=== PATIENT | male | born 1965 | race African-American/Black ===

== ENCOUNTER 2017-02-12 20:09 | Inpatient (IN) | payer OTHER ==
[~2017-02-12] VITALS: Ht 177.8 cm; Wt 90.7 kg
--- NOTE | ~2017-02-12 | EKG ---
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[place] : 1965 Requested By: Norma Lechuga Order Number: [id number] MD: Polo Zafar Measurements Intervals [place] Rate: 93 P: 60 ME: 161 QRS: 8 QRSD: 73 T: 35 QT: 352 QTc: 438 Interpretive Statements Sinus rhythm ST elev, probable normal early repol pattern Compared to ECG 08/29/2013 13:41:51 No significant change was found Electronically Signed On 02-14-2017 8:28:45 CDT by Polo Zafar [email or web address] <ELECTRONICALLY SIGNED> By: Polo Zafar MD, [facility] 02/14/17 0828 25 25 Polo Zafar MD, [facility] /EPI
[~2017-02-12 20:09] MED LIST: METFORMIN HCL500 MG PO; NORCO 5-325 TA1 EACH PO
[2017-02-12 20:19] VITALS: BP 142/114
[2017-02-12 20:50] LABS: ABSOLUTE NEUTROPHILS 10.6 thou/uL (1.4-8.2); BASOPHILS 0.7 % (0.0-2.0); EOSINOPHILS 0.8 % (0.0-3.0); HEMATOCRIT 50.1 % (42.0-52.0); HEMOGLOBIN 16.9 gm/dL (14.0-18.0); LYMPHOCYTES 19.1 % (24.0-44.0); MCH 26.1 pg (26.0-34.0); MCHC 33.7 g/dL (28.0-37.0); MCV 77.5 fL (80.0-100.0); MONOCYTES 9.8 % (1.0-8.0); PLATELET COUNT 388 thou/uL (150-400); POLYS 69.6 % (36.0-66.0); RBC 6.47 mil/uL (4.50-6.00); RDW 14.3 % (10.5-14.5); WBC 15.2 thou/uL (4.0-11.0)
[2017-02-12 20:56] LABS: MANUAL DIFF NO
[2017-02-12 21:11] LABS: ALBUMIN 4.9 g/dL (3.4-5.0); CREATININE 3.6 mg/dL (0.7-1.3); POTASSIUM 5.1 mmol/L (3.5-5.1); TOTAL BILIRUBIN 0.4 mg/dL (<0.1-1.0); TOTAL PROTEIN 9.2 g/dL (6.4-8.2)
[2017-02-12 21:21] LABS: TROPONIN-I < 0.04 ng/mL (<0.04-0.07)
[2017-02-12 21:44] LABS: URINE COLOR YELLOW; URINE PROTEIN (DIPSTICK) 1+ (Negative); URINE SPECIFIC GRAVITY 1.025 (1.003-1.035)
[2017-02-12 21:45] LABS: URINE BILIRUBIN NEGATIVE (Negative); URINE BLOOD 1+ (Negative); URINE GLUCOSE-RANDOM* 3+ (Negative); URINE KETONES NEGATIVE (Negative); URINE NITRITE NEGATIVE (Negative); URINE UROBILINOGEN 0.2 E.U./dl (0.2-1.0)
[2017-02-12 22:01] LABS: SQUAMOUS None Seen /LPF (0-3)
[2017-02-12 22:02] LABS: BACTERIA None Seen /HPF (None Seen); CRYSTALS None Seen /LPF (None Seen); HYALINE CASTS >10 Many /LPF (None Seen); TRANSITIONAL EPITHEL CELL 4-10 Moderate /LPF (None Seen); URINE RBC 0-2 Rare /HPF (0-2); URINE WBC None Seen /HPF (0-5)
[2017-02-12 22:28] VITALS: BP 148/86
[2017-02-12 23:10] VITALS: BP 136/68
[2017-02-13 00:25] VITALS: BP 121/79
[2017-02-13 04:06] VITALS: BP 114/71
[2017-02-13 06:25] LABS: HEMATOCRIT 42.5 % (42.0-52.0); MCH 26.2 pg (26.0-34.0); MCHC 34.3 g/dL (28.0-37.0); MCV 76.3 fL (80.0-100.0); RBC 5.57 mil/uL (4.50-6.00); RDW 14.6 % (10.5-14.5); WBC 9.3 thou/uL (4.0-11.0)
[2017-02-13 06:28] LABS: HEMOGLOBIN 14.6 gm/dL (14.0-18.0)
[2017-02-13 06:42] LABS: CALCIUM 8.7 mg/dL (8.5-10.1); POTASSIUM 4.3 mmol/L (3.5-5.1)
[2017-02-13 09:54] VITALS: BP 124/83
[2017-02-13 14:26] LABS: AMP/METHAMP POSITIVE (Negative); BARBITURATES Negative (Negative); BENZODIAZEPINES Negative (Negative); COCAINE Negative (Negative); METHADONE Negative (Negative); OPIATES Negative (Negative); PCP Negative (Negative); THC Negative (Negative)
[2017-02-13 16:18] VITALS: BP 127/79
[2017-02-13 20:30] VITALS: BP 123/82
[2017-02-14 00:07] LABS: GLYCOHEMOGLOBIN (HGB A1C) 9.4 % (4.8-5.6)
[2017-02-14 04:30] VITALS: BP 129/77
[2017-02-14 06:19] LABS: ABSOLUTE NEUTROPHILS 2.9 thou/uL (1.4-8.2); BASOPHILS 0.8 % (0.0-2.0); EOSINOPHILS 5.5 % (0.0-3.0); HEMATOCRIT 40.3 % (42.0-52.0); HEMOGLOBIN 13.9 gm/dL (14.0-18.0); LYMPHOCYTES 37.3 % (24.0-44.0); MCH 26.4 pg (26.0-34.0); MCHC 34.6 g/dL (28.0-37.0); MCV 76.4 fL (80.0-100.0); MONOCYTES 9.3 % (1.0-8.0); PLATELET COUNT 260 thou/uL (150-400); POLYS 47.1 % (36.0-66.0); RBC 5.27 mil/uL (4.50-6.00); RDW 14.3 % (10.5-14.5); WBC 6.2 thou/uL (4.0-11.0)
[2017-02-14 06:26] LABS: MANUAL DIFF NO
[2017-02-14 06:31] LABS: CALCIUM 8.2 mg/dL (8.5-10.1); POTASSIUM 4.6 mmol/L (3.5-5.1)
[2017-02-14 07:34] VITALS: BP 147/75
[2017-02-14 15:28] VITALS: BP 138/84
[2017-02-14 20:00] VITALS: BP 118/72
[2017-02-15 04:14] VITALS: BP 141/96
[2017-02-15 07:30] VITALS: BP 149/100
[2017-02-15 10:57] VITALS: BP 149/100
== END 2017-02-15 13:42 | disposition home or self-care (01) | DRG 683 ==
LOC: ER 20:09 → 4E 21:34 → EROBS 21:34 → 4E 23:11
PROVIDERS: Family Medicine; Nurse Practitioner Acute Care; Nurse Practitioner Family
DX: N17.9 Acute kidney failure, unspecified (principal); M62.82 Rhabdomyolysis; E87.1 Hypo-osmolality and hyponatremia; E86.0 Dehydration; E11.65 Type 2 diabetes mellitus with hyperglycemia; F15.10 Other stimulant abuse, uncomplicated; F17.210 Nicotine dependence, cigarettes, uncomplicated; M25.511 Pain in right shoulder; F10.920 Alcohol use, unspecified with intoxication, uncomplicated; F12.90 Cannabis use, unspecified, uncomplicated; Z93.0 Tracheostomy status; Z79.84 Long term (current) use of oral hypoglycemic drugs; Z83.3 Family history of diabetes mellitus
CPT/HCPCS: 10183

== ENCOUNTER 2017-08-13 22:51 | Emergency (ER) | payer OTHER ==
[~2017-08-13] VITALS: Ht 180.3 cm; Wt 90.7 kg
--- NOTE | ~2017-08-13 | EKG ---
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[facility] : 1965 Requested By: Florence Linares Order Number: [id number] MD: Polo Zafar Measurements Intervals [place] Rate: 110 P: 64 AL: 156 QRS: -6 QRSD: 76 T: 49 QT: 310 QTc: 420 Interpretive Statements Sinus tachycardia Probable left atrial enlargement RSR' in V1 or V2, probably normal variant Compared to ECG 02/12/2017 21:26:17 RSR' in V1 or V2 now present Electronically Signed On 08-14-2017 14:07:28 CDT by Polo Zafar [email or web address] <ELECTRONICALLY SIGNED> By: Polo Zafar MD, [facility] 08/14/17 1407 2305 2305 Polo Zafar MD, FAC /EPI
[2017-08-13 23:44] LABS: ABSOLUTE NEUTROPHILS 8.1 thou/uL (1.4-8.2); BASOPHILS 0.7 % (0.0-2.0); HEMATOCRIT 40.2 % (42.0-52.0); HEMOGLOBIN 13.9 gm/dL (14.0-18.0); LYMPHOCYTES 12.6 % (24.0-44.0); MCHC 34.5 g/dL (28.0-37.0); MCV 75.4 fL (80.0-100.0); MONOCYTES 6.4 % (1.0-8.0); PLATELET COUNT 249 thou/uL (150-400); POLYS 79.3 % (36.0-66.0); RBC 5.33 mil/uL (4.50-6.00); RDW 14.6 % (10.5-14.5); WBC 10.2 thou/uL (4.0-11.0)
[2017-08-13 23:48] LABS: CALCIUM 8.7 mg/dL (8.5-10.1); CREATININE 0.9 mg/dL (0.7-1.3); POTASSIUM 3.8 mmol/L (3.5-5.1)
[2017-08-14 00:23] LABS: ALBUMIN 3.4 g/dL (3.4-5.0); DIRECT BILIRUBIN 0.1 mg/dL (<0.1-0.3); TOTAL BILIRUBIN 0.4 mg/dL (<0.1-1.0); TOTAL PROTEIN 7.2 g/dL (6.4-8.2)
[2017-08-14] MEDS ORDERED: LEVAQUIN 500 M500 MG PO (00:37)
[2017-08-14] MEDS ORDERED: PROAIR HFA8.5 GM INH (00:37)
[2017-08-14 00:51] VITALS: BP 153/93
[2018-01-18] MEDS ORDERED: GABAPENTIN100 MG PO (23:22)
== END 2017-08-14 00:52 | disposition home or self-care (01) ==
LOC: ER 22:51
PROVIDERS: Emergency Medicine
DX: J18.9 Pneumonia, unspecified organism (principal); E11.9 Type 2 diabetes mellitus without complications; F17.210 Nicotine dependence, cigarettes, uncomplicated

== ENCOUNTER 2018-06-16 21:54 | Emergency (ER) | payer OTHER ==
[~2018-06-16] VITALS: Ht 180.3 cm; Wt 90.7 kg
[~2018-06-16 21:54] MED LIST changes: +GABAPENTIN100 MG PO; +LEVAQUIN 500 M500 MG PO; +PROAIR HFA8.5 GM INH
[2018-06-16 21:57] VITALS: BP 143/77
[2018-06-16] MEDS ORDERED: TESSALON PERLE100 MG PO (23:14)
== END 2018-06-16 23:21 | disposition home or self-care (01) ==
LOC: ER 21:54
DX: J20.9 Acute bronchitis, unspecified (principal); J06.9 Acute upper respiratory infection, unspecified; F17.210 Nicotine dependence, cigarettes, uncomplicated; E11.9 Type 2 diabetes mellitus without complications

== ENCOUNTER 2018-09-28 22:20 | Emergency (ER) | payer OTHER ==
[~2018-09-28] VITALS: Ht 180.3 cm; Wt 85.7 kg
[~2018-09-28 22:20] MED LIST changes: +TESSALON PERLE100 MG PO
[2018-09-28 22:58] LABS: ABSOLUTE NEUTROPHILS 3.8 thou/uL (1.4-8.2); EOSINOPHILS 3.9 % (0.0-3.0); HEMATOCRIT 40.5 % (42.0-52.0); HEMOGLOBIN 13.8 gm/dL (14.0-18.0); LYMPHOCYTES 34.4 % (24.0-44.0); MCH 25.9 pg (26.0-34.0); MCHC 33.9 g/dL (28.0-37.0); MCV 76.4 fL (80.0-100.0); MONOCYTES 6.5 % (1.0-8.0); PLATELET COUNT 314 thou/uL (150-400); POLYS 54.2 % (36.0-66.0); RBC 5.31 mil/uL (4.50-6.00); RDW 15.5 % (10.5-14.5)
[2018-09-28 23:03] LABS: ANION GAP 9 mmol/L (7-16); BUN 11 mg/dL (7-18); CALCIUM 8.6 mg/dL (8.5-10.1); CHLORIDE 103 mmol/L (98-107); CO2 26 mmol/L (21-32); CREATININE 1.1 mg/dL (0.7-1.3); GLUCOSE 174 mg/dL (74-106); POTASSIUM 3.4 mmol/L (3.5-5.1); SODIUM 138 mmol/L (136-145)
[2018-09-28 23:13] LABS: ALBUMIN 3.7 g/dL (3.4-5.0); LIPASE 95 U/L (73-393); SGOT 17 U/L (15-37); SGPT 21 U/L (30-65); TOTAL BILIRUBIN 0.2 mg/dL (<0.1-1.0); TOTAL PROTEIN 7.6 g/dL (6.4-8.2); TROPONIN-I <0.06 ng/mL (<0.06)
[2018-09-28 23:48] LABS: URINE BILIRUBIN NEGATIVE (Negative); URINE BLOOD NEGATIVE (Negative); URINE CLARITY CLEAR; URINE COLOR YELLOW; URINE GLUCOSE-RANDOM* 1+ (Negative); URINE KETONES TRACE (Negative); URINE LEUKOCYTES-REFLEX NEGATIVE (Negative); URINE NITRITE-REFLEX NEGATIVE (Negative); URINE PROTEIN (DIPSTICK) NEGATIVE (Negative); URINE SPECIFIC GRAVITY >= 1.030 (1.005-1.035)
[2018-09-29] MEDS ORDERED: PEPCID20 MG PO (00:04)
[2018-09-29 00:53] VITALS: BP 130/75
--- NOTE | 2018-09-29 12:12 | EKG ---
[facility] [employer] [place] [address] ELECTROCARDIOGRAM REPORT Name: YONATHAN SHAIKH Room #: DEP MIKE Hinson#: [id number] ������������������ Admission: 09/28/18 ������������������ Attend Phys: Discharge: 09/29/18 ������������������ Date of : 69 Report #: [id number] ����������������������������������������������������������������� [id number] THIS REPORT FOR: //name// 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 : 1965 Requested By: Matteo Madrigal Order Number: [id number] MD: Polo Zafar Measurements Intervals [place] Rate: 89 P: 70 NC: 176 QRS: -2 QRSD: 87 T: 56 QT: 361 QTc: 440 Interpretive Statements Sinus rhythm RSR' in V1 or V2, probably normal variant ST elev, probable normal early repol pattern Compared to ECG 08/13/2017 23:05:11 Sinus tachycardia no longer present Electronically Signed On 09-29-2018 12:12:29 CDT by Polo Zafar [email or web address] ��������������������������������������������� <ELECTRONICALLY SIGNED> ���������������������������������������� By: Polo Zafar MD, [facility] ��������������������������������������������� 09/29/18 1212 2305 2305 Polo Zafar MD, [facility] /EPI
== END 2018-09-29 00:54 | disposition home or self-care (01) ==
LOC: ER 22:20
PROVIDERS: Emergency Medicine
DX: S20.212A Contusion of left front wall of thorax, initial encounter (principal); R10.32 Left lower quadrant pain; R11.0 Nausea; E11.9 Type 2 diabetes mellitus without complications; I10 Essential (primary) hypertension; E78.5 Hyperlipidemia, unspecified; F17.210 Nicotine dependence, cigarettes, uncomplicated; W19.XXXA Unspecified fall, initial encounter; Y93.89 Activity, other specified; Y92.89 Other specified places as the place of occurrence of the external cause; Y99.8 Other external cause status

== ENCOUNTER 2019-06-30 00:06 | Emergency (ER) | payer OTHER ==
[~2019-06-30] VITALS: Ht 177.8 cm; Wt 77.1 kg
[~2019-06-30 00:06] MED LIST changes: +PEPCID20 MG PO
[2019-06-30 00:53] LABS: HEMOGLOBIN 13.4 gm/dL (14.0-18.0); MCH 25.8 pg (26.0-34.0); MCHC 33.4 g/dL (28.0-37.0); MCV 77.1 fL (80.0-100.0); PLATELET COUNT 258 thou/uL (150-400); RBC 5.19 mil/uL (4.50-6.00); RDW 15.2 % (10.5-14.5); WBC 6.2 thou/uL (4.0-11.0)
[2019-06-30 01:04] LABS: ANION GAP 11 mmol/L (7-16); BUN 10 mg/dL (7-18); CALCIUM 8.2 mg/dL (8.5-10.1); CHLORIDE 102 mmol/L (98-107); CO2 26 mmol/L (21-32); GLUCOSE 138 mg/dL (74-106); POTASSIUM 3.6 mmol/L (3.5-5.1); SODIUM 139 mmol/L (136-145)
[2019-06-30 01:13] LABS: TROPONIN-I <0.06 ng/mL (<0.06)
[2019-06-30 01:45] LABS: ABSOLUTE NEUTROPHILS 1.9 thou/uL (1.4-8.2)
[2019-06-30 01:46] LABS: ANISOCYTOSIS 1+; HYPOCHROMASIA 1+; MICROCYTES 1+; PLATELET ESTIMATE NORMAL; POIKILOCYTOSIS 1+
[2019-06-30 02:26] VITALS: BP 160/90
--- NOTE | 2019-07-04 12:33 | EKG ---
[facility] [place] [address] ELECTROCARDIOGRAM REPORT Name: YONATHAN SHAIKH Room #: [facility]P 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[facility] : 1965 Requested By: Josh Eddy Order Number: [id number] MD: Polo Zafar Measurements Intervals [place] Rate: 85 P: 75 CO: 177 QRS: 34 QRSD: 80 T: 70 QT: 344 QTc: 409 Interpretive Statements Sinus rhythm RSR' in V1 or V2, probably normal variant Baseline wander in lead(s) V6 Compared to ECG 09/28/2018 23:05:13 No significant changes Electronically Signed On 07-02-2019 7:21:27 [employer]ULP [employer]ILL TEAM LEADER by Polo Zafar [email or web address] <ELECTRONICALLY SIGNED> By: Polo Zafar MD, FACC 07/02/19 0721 0011 0011 Polo Zafar MD, [facility] /EPI
== END 2019-06-30 01:48 | disposition home or self-care (01) ==
LOC: ER 00:06
PROVIDERS: Emergency Medicine
DX: R07.89 Other chest pain (principal); E11.9 Type 2 diabetes mellitus without complications; F17.210 Nicotine dependence, cigarettes, uncomplicated; Z88.6 Allergy status to analgesic agent

== ENCOUNTER 2019-08-05 15:49 | Emergency (ER) | payer OTHER ==
[~2019-08-05] VITALS: Ht 177.8 cm; Wt 90.7 kg
[2019-08-05 16:22] LABS: BASOPHILS 0.8 % (0.0-2.0); EOSINOPHILS 5.2 % (0.0-3.0); HEMATOCRIT 41.8 % (42.0-52.0); HEMOGLOBIN 13.7 gm/dL (14.0-18.0); LYMPHOCYTES 45.2 % (24.0-44.0); MCH 25.8 pg (26.0-34.0); MCHC 32.7 g/dL (28.0-37.0); MCV 78.6 fL (80.0-100.0); MONOCYTES 7.4 % (1.0-8.0); PLATELET COUNT 278 thou/uL (150-400); POLYS 41.4 % (36.0-66.0); RBC 5.31 mil/uL (4.50-6.00); RDW 15.8 % (10.5-14.5); WBC 4.9 thou/uL (4.0-11.0)
[2019-08-05 16:27] LABS: CALCIUM 8.5 mg/dL (8.5-10.1); POTASSIUM 3.7 mmol/L (3.5-5.1)
[2019-08-05 16:30] LABS: URINE BILIRUBIN NEGATIVE (Negative); URINE BLOOD NEGATIVE (Negative); URINE CLARITY CLEAR; URINE COLOR YELLOW; URINE GLUCOSE-RANDOM* 1+ (Negative); URINE KETONES NEGATIVE (Negative); URINE LEUKOCYTES-REFLEX NEGATIVE (Negative); URINE NITRITE-REFLEX NEGATIVE (Negative); URINE PROTEIN (DIPSTICK) NEGATIVE (Negative); URINE SPECIFIC GRAVITY 1.025 (1.005-1.035)
[2019-08-05 16:33] LABS: ALBUMIN 3.6 g/dL (3.4-5.0); TOTAL BILIRUBIN 0.3 mg/dL (<0.1-1.0); TOTAL PROTEIN 7.4 g/dL (6.4-8.2)
[2019-08-05 17:03] LABS: AMP/METHAMP POSITIVE (Negative); BARBITURATES Negative (Negative); BENZODIAZEPINES Negative (Negative); COCAINE Negative (Negative); METHADONE Negative (Negative); OPIATES Negative (Negative); PCP Negative (Negative)
[2019-08-05 19:11] VITALS: BP 138/85
== END 2019-08-05 19:13 | disposition home or self-care (01) ==
LOC: ER 15:49
PROVIDERS: Physician Assistant
DX: E11.9 Type 2 diabetes mellitus without complications (principal); F17.210 Nicotine dependence, cigarettes, uncomplicated; Z88.6 Allergy status to analgesic agent

== ENCOUNTER 2019-10-06 01:57 | Emergency (ER) | payer OTHER ==
[~2019-10-06] VITALS: Ht 180.3 cm; Wt 97.5 kg
[2019-10-06] MEDS ORDERED: MOBIC15 MG PO (02:58)
[2019-10-06 03:43] VITALS: BP 144/81
== END 2019-10-06 03:40 | disposition home or self-care (01) ==
LOC: ER 01:57
DX: E11.40 Type 2 diabetes mellitus with diabetic neuropathy, unspecified (principal); Z59.0 Homelessness; M79.671 Pain in right foot; M79.672 Pain in left foot; R20.8 Other disturbances of skin sensation; F17.210 Nicotine dependence, cigarettes, uncomplicated

== ENCOUNTER 2019-10-18 22:07 | Emergency (ER) | payer OTHER ==
[~2019-10-18] VITALS: Ht 180.3 cm; Wt 90.7 kg
[~2019-10-18 22:07] MED LIST changes: +MOBIC15 MG PO
[2019-10-18 22:28] VITALS: BP 139/85
[2019-10-18] MEDS ORDERED: ATHLETIC FOOT C30 GM TOP (22:42)
== END 2019-10-18 23:01 | disposition home or self-care (01) ==
LOC: ER 22:07
DX: T69.022A Immersion foot, left foot, initial encounter (principal); T69.021A Immersion foot, right foot, initial encounter; R11.0 Nausea; R55 Syncope and collapse; E11.9 Type 2 diabetes mellitus without complications; F17.210 Nicotine dependence, cigarettes, uncomplicated; Z71.1 Person with feared health complaint in whom no diagnosis is made; Z88.6 Allergy status to analgesic agent; Z59.0 Homelessness; X58.XXXA Exposure to other specified factors, initial encounter; Y93.89 Activity, other specified; Y92.89 Other specified places as the place of occurrence of the external cause; Y99.8 Other external cause status

== ENCOUNTER → 2019-11-05 | Emergency (ER) | payer OTHER ==
[~2019-11-05] VITALS: Ht 180.3 cm; Wt 81.7 kg
[~2019-11-05] MED LIST changes: +ATHLETIC FOOT C30 GM TOP
[2019-11-05 19:48] VITALS: BP 131/79
== END ==
LOC: ER 19:15
DX: F22 Delusional disorders (principal); Z76.5 Malingerer [conscious simulation]; Z59.0 Homelessness; R07.9 Chest pain, unspecified; R20.8 Other disturbances of skin sensation; R10.9 Unspecified abdominal pain; R11.0 Nausea; E11.9 Type 2 diabetes mellitus without complications; F17.210 Nicotine dependence, cigarettes, uncomplicated; Z79.82 Long term (current) use of aspirin

== ENCOUNTER 2020-04-19 18:19 | Emergency (ER) | payer OTHER ==
[~2020-04-19] VITALS: Ht 177.8 cm; Wt 99.8 kg
[2020-04-19 18:26] VITALS: BP 135/110
[2020-04-19] MEDS ORDERED: CHLORASEPTIC MA30 ML MUCOUS MEM (19:15)
== END 2020-04-19 19:25 | disposition home or self-care (01) ==
LOC: ER 18:19
DX: J02.9 Acute pharyngitis, unspecified (principal); E11.9 Type 2 diabetes mellitus without complications; F17.210 Nicotine dependence, cigarettes, uncomplicated; Z88.6 Allergy status to analgesic agent

== ENCOUNTER 2020-07-01 16:42 | Emergency (ER) | payer OTHER ==
[~2020-07-01] VITALS: Ht 180.3 cm; Wt 90.7 kg
[~2020-07-01 16:42] MED LIST changes: +CHLORASEPTIC MA30 ML MUCOUS MEM
[2020-07-01] MEDS ORDERED: MUPIROCIN15 GM TOP (18:21)
[2020-07-01 18:28] VITALS: BP 166/91
== END 2020-07-01 18:29 | disposition home or self-care (01) ==
LOC: ER 16:42
DX: L97.129 Non-pressure chronic ulcer of left thigh with unspecified severity (principal); L97.329 Non-pressure chronic ulcer of left ankle with unspecified severity; E11.9 Type 2 diabetes mellitus without complications; F17.210 Nicotine dependence, cigarettes, uncomplicated; Z79.82 Long term (current) use of aspirin; Z79.899 Other long term (current) drug therapy

== ENCOUNTER 2021-01-31 11:51 | Emergency (ER) | payer OTHER ==
[~2021-01-31] VITALS: Ht 180.3 cm; Wt 90.7 kg
[2021-01-31 11:51] VITALS: BP 131/77
[~2021-01-31 11:51] MED LIST changes: +MUPIROCIN15 GM TOP
== END 2021-01-31 12:58 | disposition home or self-care (01) ==
LOC: ER 11:51
DX: Z77.098 Contact with and (suspected) exposure to other hazardous, chiefly nonmedicinal, chemicals (principal); E11.9 Type 2 diabetes mellitus without complications; F17.210 Nicotine dependence, cigarettes, uncomplicated; Z88.6 Allergy status to analgesic agent